=== PATIENT | female | born 1990 ===

== ENCOUNTER 2018-12-24 01:46 | Emergency (ER) | payer SELFPAY ==
--- NOTE | 2018-12-24 01:58 | C.PDOC ---
History Of Present Illness 28 yr old female w/ unknown pmhx p/w substance abuse / presumed etoh intox. Per EMS pt was found by police along [facility] wandering and taking off her clothes. and referred to EMS for intoxication. Pt un-cooperative, un-willing to answer any questions. Alcohol noted on breath and appears intoxicated. No signs of trauma. Time Seen by Provider: 12/24/18 01:58 Chief Complaint (Nursing): Substance Abuse Past Medical History Family History: States: Unknown Family Hx Review Of Systems Review Of Systems: ROS cannot be obtained secondary to pt's inabilty to answer questions. (pt unwilling to answer questions: intoxicated) Physical Exam - Physical Exam Appears: Non-toxic, No Acute Distress Skin: Normal Color, Warm, Dry Head: Atraumatic, Normacephalic Eye(s): bilateral: Normal Inspection, PERRL, EOMI Nose: Normal Oral Mucosa: Moist Throat: Normal, No Erythema Neck: Supple, Other (no meningeal signs) Respiratory: Normal Breath Sounds Gastrointestinal/Abdominal: Normal Exam, Soft, No Tenderness, No Distention, No Guarding Back: Normal Inspection, No Vertebral Tenderness Extremity: Normal ROM Neurological/Psych: Other (alcohol on breath, appears intoxicated) ED Course And Treatment - Laboratory Results Result Diagrams: 12/24/18 04:50 12/24/18 04:50 Medical Decision Making Medical Decision Makin yr old female p/w presumed substance abuse. Alcohol on breath, uncooperative on exam. No signs of trauma / fall. No meningeal signs. 0216 No indication for sedation at this time, will continue to monitor for sobreity. 0420 pt continues to be uncooperative, labs ordered pt in NAD ekg 73, nsr, no stemi 0517 etoh 255 @450 clears @ ~11am pt in NAD CXR, labs, otherwise unremarkable [address] Garcia pending clinical sobreity, final dispo Disposition - Disposition Referrals: Non [facility] Provider, [Primary Care Provider] - Disposition Time: 07:00 Condition: STABLE Forms: [employer] (Portuguese) - Clinical Impression Clinical Impression: Alcohol intoxication
[2018-12-24] MEDS ORDERED: Sodium Chloride 0.9% 1,000 ML IV ONE (04:23)
[2018-12-24 04:31] LABS: SQUAMOUS EPITHIAL < 1 /hpf (0-5); URINE BACTERIA RARE (<OCC); URINE BILIRUBIN NEGATIVE (NEGATIVE); URINE BLOOD NEGATIVE (NEGATIVE); URINE CLARITY Clear (Clear); URINE COLOR Colorless (YELLOW); URINE GLUCOSE (UA) NORMAL (Normal); URINE LEUKOCYTE ESTERASE NEG Leu/uL (Negative); URINE PROTEIN NEGATIVE (NEGATIVE); URINE UROBILINOGEN NORMAL mg/dL (0.2-1.0)
[2018-12-24 04:45] LABS: BARBITURATES, UR NEGATIVE (NEGATIVE); BENZODIAZEPINES, UR NEGATIVE (NEGATIVE); OPIATES, UR NEGATIVE (NEGATIVE); PHENCYCLIDINE, UR NEGATIVE (NEGATIVE)
[2018-12-24 04:55] LABS: BASO % 0.6 % (0.0-2.0); EOS # 0.1 K/uL (0.0-0.7); EOS % 1.4 % (0.0-4.0); LYMPH # 1.9 K/uL (1.0-4.3); LYMPH % 25.9 % (20.0-40.0); MEAN CELL VOLUME 94.1 fL (81.0-99.0); MEAN CORPUSCULAR HEMOGLOBIN 32.4 pg (27.0-31.0); MEAN CORPUSCULAR HGB CONC 34.4 g/dL (33.0-37.0); MEAN PLATELET VOLUME 8.5 fL (7.2-11.7); MONO # 0.6 K/uL (0.0-0.8); MONO % 8.5 % (0.0-10.0); NEUT # 4.6 K/uL (1.8-7.0); NEUT % 63.6 % (50.0-75.0); NRBC % 0.1 % (0.0-2.0); RBC 4.33 Mil/uL (3.80-5.20); RED CELL DISTRIBUTION WIDTH 12.5 % (11.5-14.5); WHITE BLOOD COUNT 7.3 K/uL (4.8-10.8)
[2018-12-24 05:06] LABS: ALB/GLOB RATIO 1.6 (1.0-2.1); ALBUMIN 4.8 g/dL (3.5-5.0); ALT/SGPT 21 U/L (9-52); AST/SGOT 25 U/L (14-36); BLOOD UREA NITROGEN 8 mg/dL (7-17); CALCIUM 8.7 mg/dl (8.6-10.4); GFR NON-AFRICAN AMERICAN > 60
[2018-12-24 05:08] LABS: ACETAMINOPHEN < 10.0 ug/mL (10.0-30.0); SALICYLATE < 1.0 mg/dL 1
[2018-12-24 07:25] VITALS: TEMP 98.9
[2018-12-24 07:26] VITALS: BP 105/55; PULSE 73
[2018-12-24 08:47] VITALS: RESP 18; O2SAT 100
--- NOTE | 2018-12-24 09:34 | RAD ---
Date of service: 12/24/2018 HISTORY: Detox/Psy COMPARISON: None available. TECHNIQUE: 1 view obtained. FINDINGS: LUNGS: Hazy appearance of the left lung likely due to patient positioning. PLEURA: No significant pleural effusion identified, no pneumothorax apparent. CARDIOVASCULAR: No aortic atherosclerotic calcification present. Normal cardiac size. No pulmonary vascular congestion. OSSEOUS STRUCTURES: No significant abnormalities. VISUALIZED UPPER ABDOMEN: Normal. OTHER FINDINGS: None. IMPRESSION: A the appearance of the left lung likely due to patient positioning. No active disease.
--- NOTE | 2018-12-25 17:53 | CARD ---
APPROVED REPORT Date of service: 12/24/2018 EKG Measurement Heart [id number] <Conclusion> Normal sinus rhythm Normal ECG
== END 2018-12-24 08:43 | disposition home or self-care (01) ==
LOC: EDBD 01:46 → SUPCPDRO 01:46 → C.ER 01:46
DX: F10.129 Alcohol abuse with intoxication, unspecified (principal); Y90.8 Blood alcohol level of 240 mg/100 ml or more
CPT/HCPCS: 71045; 80053; 81001; 81025; 82948; 83735; 84100; 85025; 93005; 96360; 99285; G0480; J7030